=== PATIENT | male | born 1980 | race Caucasian/White ===

== ENCOUNTER 2016-09-30 19:01 | Emergency (ER) | payer MEDICAID, OTHER ==
[~2016-09-30] VITALS: Ht 172.7 cm; Wt 100.0 kg
[~2016-09-30 19:01] MED LIST: ALBU1AER INH; BENZ100 PO; METR-1 PO; TERB250
[2016-09-30 19:04] VITALS: BP 168/80; PULSE 86; RESP 14; TEMP 98; O2SAT 98
--- NOTE | 2016-09-30 21:45 | PD ---
HPI Chief Complaint: Psychiatric Symptoms Time Seen by Provider: 21:45 Travel History International Travel<30 days: No Contact w/Intl Traveler<30days: No Traveled to known affect area: No History of Present Illness HPI 35-year-old male with no psych history or significant medical history except for a left knee injury, presents to the emergency department voluntarily for psychiatric evaluation. He is accompanied by 2 friends. Patient states that he understands what he is saying "sounds like he is losing his mind" however he truly believes they're happening. The patient reports somebody trying to track him. He believes wires of an implanted into his shoes. He believes that people are recorded him and following him in attempt to "sabotage his reputation." Patient went to [place] where his mother is. He took his daughter there so she could be safe. He went to get a psychiatric evaluation there but felt that the people were "in on it" and conspiring against him. He left to come here where he knows people. Patient does report illicit drug use. States that he recently relapsed. He has no cell psychiatric history or family psychiatric history that he is aware of. He has no other symptoms to report. PFSH Past Medical History Asthma: Yes ( A CHILD) Cancer: No Cardiovascular Problems: No Diminished Hearing: No Endocrine: No Genitourinary: No Musculoskeletal: Yes Neurologic: Yes Psychiatric: No Reproductive: No Respiratory: Yes Ulcer: Yes Past Surgical History Ear Surgery: Yes (, TUBES IN EARS) Other Surgery: Yes (LEFT MASTOIDECTOMY ) Social History Alcohol Use: No Tobacco Use: Yes (SNUFF AND CIGARETTES) Substance Use: No Allergies-Medications (Allergen,Severity, Reaction): Coded Allergies: No Known Allergies (Verified , 09/30/16) Reported Meds & Prescriptions Reported Meds & Active Scripts Active Reported Oxycodone (Oxycodone HCl) 30 Mg Tab 30 Mg PO Q6H PRN Review of Systems Except as stated in HPI: all other systems reviewed are Neg Physical Exam Narrative GENERAL: Well-nourished male patient, in no acute distress SKIN: Warm and dry. HEAD: Atraumatic. Normocephalic. EYES: Pupils equal and round. No scleral icterus. No injection or drainage. ENT: No nasal bleeding or discharge. Mucous membranes pink and moist. NECK: Trachea midline. No JVD. CARDIOVASCULAR: Regular rate and rhythm. No murmur appreciated. RESPIRATORY: No accessory muscle use. Clear to auscultation. Breath sounds equal bilaterally. GASTROINTESTINAL: Abdomen soft, non-tender, nondistended. Hepatic and splenic margins not palpable. MUSCULOSKELETAL: No obvious deformities. No clubbing. No cyanosis. No edema. NEUROLOGICAL: Awake and alert. No obvious cranial nerve deficits. Motor grossly within normal limits. Normal speech. Data Data Last Documented VS Vital Signs Date Time Temp Pulse Resp B/P Pulse Ox O2 Delivery O2 Flow Rate FiO2 09/30/16 23:52 16 09/30/16 19:04 98.0 86 168/80 98 Room Air Orders Complete Blood Count With Diff (09/30/16 21:26) Basic Metabolic Panel (Bmp) (09/30/16 21:26) Psych Screen (09/30/16 21:26) Drug Screen, Random Urine (09/30/16 21:26) Alcohol (Ethanol) (09/30/16 21:26) Nicotine 21 Mg Patch.24 Hr (Habitrol 21 (09/30/16 22:00) Ketorolac Inj (Toradol Inj) (09/30/16 22:15) Labs Laboratory Tests Test 09/30/16 22:10 White Blood Count 9.1 TH/MM3 Red Blood Count 4.61 MIL/MM3 Hemoglobin 13.8 GM/DL Hematocrit 40.5 % Mean Corpuscular Volume 87.8 FL Mean Corpuscular Hemoglobin 30.0 PG Mean Corpuscular Hemoglobin 34.2 % Concent Red Cell Distribution Width 13.3 % Platelet Count 238 TH/MM3 Mean Platelet Volume 9.2 FL Neutrophils (%) (Auto) 63.4 % Lymphocytes (%) (Auto) 26.7 % Monocytes (%) (Auto) 7.4 % Eosinophils (%) (Auto) 2.0 % Basophils (%) (Auto) 0.5 % Neutrophils # (Auto) 5.8 TH/MM3 Lymphocytes # (Auto) 2.4 TH/MM3 Monocytes # (Auto) 0.7 TH/MM3 Eosinophils # (Auto) 0.2 TH/MM3 Basophils # (Auto) 0.0 TH/MM3 CBC Comment DIFF FINAL Differential Comment Sodium Level 141 MEQ/L Potassium Level 3.6 MEQ/L Chloride Level 106 MEQ/L Carbon Dioxide Level 28.7 MEQ/L Anion Gap 6 MEQ/L Blood Urea Nitrogen 14 MG/DL Creatinine 1.05 MG/DL Estimat Glomerular Filtration 81 ML/MIN Rate Random Glucose 113 MG/DL Calcium Level 8.5 MG/DL Urine Opiates Screen NEG Urine Barbiturates Screen NEG Urine Amphetamines Screen NEG Urine Benzodiazepines Screen NEG Urine Cocaine Screen NEG Urine Cannabinoids Screen POS Ethyl Alcohol Level LESS THAN 3 MG/DL MDM Medical Decision Making Medical Screen Exam Complete: Yes Emergency Medical Condition: Yes Medical Record Reviewed: Yes Differential Diagnosis Substance-induced psychosis versus major disorder versus personality disorder versus adjustment reaction disorder Narrative Course 35-year-old male presents to emergency department voluntarily for psychiatric evaluation. Patient appears without distress. Lab work is without acute concern. Patient is medically cleared to undergo psychiatric screening for further evaluation and disposition. Mental health screening discussed with the patient. Psychiatric screen ordered. Diagnosis Primary Impression: Paranoid behavior Additional Impression: Substance abuse Condition: Stable Blanquita Samuel Sep 30, 2016 21:45
[2016-09-30] MEDS ORDERED: NICOTINE 21 MG/24 HR PATCH TD ONE (22:00)
[2016-09-30] MEDS ORDERED: OXYC30TA PO (22:06)
[2016-09-30] MEDS ORDERED: KETOROLAC TROMETHAMINE 60 MG/2 ML (IM) VIAL IM ONE (22:15)
[2016-09-30 22:20] VITALS: BP 142/68; PULSE 71; RESP 16; TEMP 98.4; O2SAT 96
[2016-09-30 22:28] LABS: AUTOMATED NEUTROPHIL # 5.8 TH/MM3 (1.8-7.7); BASOPHIL % 0.5 % (0.0-2.0); EOSINOPHIL # 0.2 TH/MM3 (0-0.4); HEMATOCRIT 40.5 % (39.0-51.0); HEMO FLAGS DIFF FINAL; LYMPH % 26.7 % (9.0-44.0); LYMPHOCYTE # 2.4 TH/MM3 (1.0-4.8); MEAN CELL VOLUME 87.8 FL (80.0-100.0); MEAN CORPUSCULAR HGB CONC 34.2 % (32.0-36.0); MONO % 7.4 % (0.0-8.0); NEUT % 63.4 % (16.0-70.0); PLATELET COUNT 238 TH/MM3 (150-450); RED BLOOD COUNT 4.61 MIL/MM3 (4.50-5.90); RED CELL DISTRIBUTION WIDTH 13.3 % (11.6-17.2); WHITE BLOOD COUNT 9.1 TH/MM3 (4.0-11.0)
[2016-09-30 22:35] LABS: AMPHETAMINE, URINE NEG (NEG); BARBITURATES, URINE NEG (NEG); COCAINE, URINE NEG (NEG)
[2016-09-30 22:45] LABS: ANION GAP 6 MEQ/L (5-15); BICARBONATE 28.7 MEQ/L (21.0-32.0); BLOOD UREA NITROGEN 14 MG/DL (7-18); CHLORIDE 106 MEQ/L (98-107); GLOMERULAR FILTRATION RATE 81 ML/MIN (>89); POTASSIUM 3.6 MEQ/L (3.5-5.1); SODIUM (NA) 141 MEQ/L (136-145)
[2016-10-01] MEDS ORDERED: LOPERAMIDE HCL 2 MG CAP PO ONE (02:30)
[2016-10-01 07:00] VITALS: BP 134/62; PULSE 72; RESP 16; TEMP 98.2; O2SAT 98
[2016-10-01 14:00] VITALS: BP 154/82; PULSE 82; RESP 18
== END 2016-10-01 15:17 | disposition home or self-care (01) ==
LOC: NEPB 19:01 → NEPJ 10-01 15:17
DX: F23 Brief psychotic disorder (principal); F19.10 Other psychoactive substance abuse, uncomplicated; Z72.0 Tobacco use
CPT/HCPCS: 80048; 80307; 80320; 85025; 96372; 99283; J1885